=== PATIENT | female | born 1935 | race Hispanic/Latino ===

== ENCOUNTER → 2018-06-22 | Outpatient (CLI) | payer OTHER ==
[~2018-06-22] MED LIST: ACET1TAB12 PO; ALEN70SO3 PO; AMLO5TAB9 PO; ASPI-12 PO; ATOR40TA69 PO; CA C1TAB98 PO; FERR159T2 PO; LISI-613 PO; METO25TA6 PO
== END | disposition home or self-care (01) ==
LOC: RAH 14:37
PROVIDERS: ATTEND Family Medicine
DX: Z12.31 Encounter for screening mammogram for malignant neoplasm of breast (principal)
CPT/HCPCS: 77067

== ENCOUNTER → 2018-07-06 | Outpatient (CLI) | payer OTHER | END | disposition home or self-care (01) | LOC: RAH 12:35 | PROVIDERS: ATTEND Otolaryngology Plastic Surgery within the Head & Neck | DX: R22.1 Localized swelling, mass and lump, neck (principal) | CPT/HCPCS: 76536 ==

== ENCOUNTER 2022-06-24 13:41 | Inpatient (IN) | payer OTHER ==
[~2022-06-24] VITALS: Ht 149.9 cm; Wt 56.7 kg
[~2022-06-24 13:41] MED LIST changes: -ALEN70SO3 PO; +ALEN70SO4 PO; +AMLO-257 PO; -AMLO5TAB9 PO; -LISI-613 PO; +LISI20TA24 PO
[2022-06-24] MEDS ORDERED: IPRATROPIUM/ALBUTEROL SULFATE 3 ML SOLUTION IH ONE (15:00)
[2022-06-24 15:24] LABS: BASOPHILS % (AUTO) 0.4 % (0.0-5.0); EOSINOPHILS % (AUTO) 1.7 % (0.0-8.0); HEMATOCRIT 38.2 % (36-48); LYMPHOCYTES % (AUTO) 25.6 % (21.0-51.0); MEAN CORPUSCULAR HEMOGLOBIN 31.2 pg (27.0-33.0); MEAN CORPUSCULAR VOLUME 94.6 fL (79-99); MONOCYTES % (AUTO) 15.5 % (3.0-13.0); NEUTROPHILS % (AUTO) 56.4 % (40.0-77.0); PLATELET COUNT (AUTO) 205 K/uL (130-400); RED BLOOD CELL COUNT(AUTO) 4.04 MIL/uL (4.00-5.50); RED CELL DISTRIBUTION WIDTH 13.8 % (11.0-15.5); WHITE BLOOD COUNT (AUTO) 5.4 K/uL (4.8-10.8)
[2022-06-24 15:25] LABS: APPEARANCE,URINE CLEAR (CLEAR); BILIRUBIN,URINE NEGATIVE (NEGATIVE); COLOR,URINE LIGHT-YELLOW (YELLOW); GLUCOSE, URINE (UA) NEGATIVE (NEGATIVE); KETONES,URINE NEGATIVE (NEGATIVE); LEUKOCYTE ESTERASE ,URINE NEGATIVE Leu/uL (NEGATIVE); NITRATE,URINE NEGATIVE (NEGATIVE); OCCULT BLOOD,URINE NEGATIVE (NEGATIVE); PROTEIN,URINE NEGATIVE (NEGATIVE); UROBILINOGEN,URINE 0.2 mg/dL (0.2-1.0)
[2022-06-24 15:28] LABS: BACTERIA,URINE RARE /HPF (None Seen); MUCUS,URINE RARE LPF (None Seen); RBC,URINE 0-1 /HPF (0-1); SQUAMOUS EPITHELIAL CELL,UR RARE /HPF (0-2); YEAST,URINE BUDDING RARE /HPF (None Seen)
[2022-06-24 15:33] LABS: CREATININE 0.9 mg/dL (0.5-1.5); POTASSIUM 3.9 mmol/L (3.5-5.1)
[2022-06-24 15:40] LABS: ALBUMIN 3.2 g/dL (3.5-5.0); TOTAL PROTEIN, SERUM 7.2 g/dL (6.0-8.3)
[2022-06-24 16:14] LABS: ABG BASE EXCESS 3.3 mmol/L (-2.0-3.0); ABG HCO3 26.8 mmol/L (21.0-28.0); ABG OXYGEN SATURATION 95.9 % (95.0-99.0); ABG PCO2 37 mmHg (32-45)
[2022-06-24] MEDS ORDERED: MECO10005 PO (17:05)
[2022-06-24] MEDS ORDERED: IBAN150T21 PO (17:05)
[2022-06-24] MEDS ORDERED: KAYEXALATE 15GM/60ML PO PRN (17:30)
[2022-06-24] MEDS ORDERED: ACETAMINOPHEN 325 MG TAB PO PRN (17:30)
[2022-06-24] MEDS ORDERED: ONDANSETRON 4MG INJ IVP PRN (17:30)
[2022-06-24] MEDS ORDERED: MORPHINE 2 MG SYG IVP PRN (17:30)
[2022-06-24] MEDS ORDERED: MORPHINE 4 MG SYG IVP PRN (17:30)
[2022-06-24] MEDS ORDERED: HYDROCODONE/ACETAMINOPHEN 5/325 MG TAB PO PRN (17:30)
[2022-06-24] MEDS ORDERED: TEMAZEPAM 15 MG CAPSULE PO PRN (17:30)
[2022-06-24] MEDS ORDERED: HYDRALAZINE 20MG/ML VIAL IV PRN (17:30)
[2022-06-24] MEDS ORDERED: LABETALOL 20MG SYG IV PRN (17:30)
[2022-06-24] MEDS ORDERED: VIT1CAPS47 PO (18:49)
[2022-06-24] MEDS: ALBUTEROL 0.083% 2.5 MG/3 ML INH IH PRN (20:36)
[2022-06-24] MEDS: LISINOPRIL 20 MG TABLET PO SCH (22:09)
[2022-06-24] MEDS: METOPROLOL TARTRATE 25 MG TAB PO SCH (22:09)
[2022-06-24] MEDS: ATORVASTATIN 40 MG TABLET PO SCH (22:09)
[2022-06-24] MEDS: FUROSEMIDE 40MG VIAL IV SCH (22:44)
[2022-06-25] VITALS (15 sets, daily range): BP systolic 102–150; BP diastolic 52–66
[2022-06-25] MEDS ORDERED: FERR-72 PO (00:49)
[2022-06-25] MEDS ORDERED: CHOL500051 PO (00:49)
[2022-06-25 05:31] LABS: BASOPHILS % (AUTO) 0.4 % (0.0-5.0); EOSINOPHILS % (AUTO) 2.4 % (0.0-8.0); HEMATOCRIT 37.4 % (36-48); LYMPHOCYTES % (AUTO) 23.4 % (21.0-51.0); MEAN CORPUSCULAR HEMOGLOBIN 30.8 pg (27.0-33.0); MEAN CORPUSCULAR HGB CONC 33.2 g/dL (32.0-36.0); MONOCYTES % (AUTO) 18.2 % (3.0-13.0); NEUTROPHILS % (AUTO) 55.2 % (40.0-77.0); PLATELET COUNT (AUTO) 211 K/uL (130-400); RED BLOOD CELL COUNT(AUTO) 4.02 MIL/uL (4.00-5.50); RED CELL DISTRIBUTION WIDTH 13.9 % (11.0-15.5); WHITE BLOOD COUNT (AUTO) 5.4 K/uL (4.8-10.8)
[2022-06-25 05:43] LABS: INR 1.1 (0.85-1.15); PROTHROMBIN TIME 11.9 SEC (9.6-11.6)
[2022-06-25 05:44] LABS: PARTIAL THROMBOPLASTIN TIME 30.2 SEC (26.3-35.5)
[2022-06-25 05:52] LABS: CREATININE 0.8 mg/dL (0.5-1.5); MAGNESIUM 1.8 mg/dL (1.80-2.40); PHOSPHORUS 4.2 mg/dL (2.5-4.9); POTASSIUM 3.9 mmol/L (3.5-5.1); THYROID STIMULATING HORMONE 2.19 uIU/mL (0.36-3.74); TOTAL PROTEIN, SERUM 6.1 g/dL (6.0-8.3)
[2022-06-25 05:57] LABS: B-TYPE NATRIURETIC PEPTIDE 194 pg/mL (0-100)
[2022-06-25] MEDS: FERROUS SULFATE 325 MG TABLET.DR PO SCH (09:22)
[2022-06-25] MEDS: METOPROLOL TARTRATE 25 MG TAB PO SCH ×2 (09:22→21:48)
[2022-06-25] MEDS: LISINOPRIL 20 MG TABLET PO SCH ×2 (09:22→21:48)
[2022-06-25] MEDS: FUROSEMIDE 40MG VIAL IV SCH ×2 (11:39→21:49)
[2022-06-25 13:00] LABS: BODY FLUID RBC 740 /cu. mm.; BODY FLUID WBC 1094 /cu. mm.
[2022-06-25 13:32] LABS: BF LYMPHOCYTE 86 %; BF MESOTHELIAL 8 %
[2022-06-25 13:33] LABS: APPEARANCE BODY FLUID CLEAR (CLEAR); SPECIMENTYPE,BODY FLUID PLEURAL
[2022-06-25 13:34] LABS: COLOR,BODY FLUID YELLOW (LT YELLOW); TOTAL VOLUME,BODY FLUID 1500 mL
[2022-06-25 14:18] LABS: ABG BASE EXCESS 5.4 mmol/L (-2.0-3.0); ABG HCO3 27.2 mmol/L (21.0-28.0); ABG PCO2 32 mmHg (32-45)
[2022-06-25] MEDS: ALBUTEROL 0.083% 2.5 MG/3 ML INH IH PRN (14:35)
[2022-06-25] MEDS ORDERED: ENOXAPARIN SODIUM 30 MG/0.3 ML SQ SCH (17:00)
[2022-06-25] MEDS ORDERED: ALBUTEROL 0.083% 2.5 MG/3 ML INH IH PRN (18:00)
[2022-06-25] MEDS ORDERED: HEPARIN 5,000 UNIT VIAL ONE ×2 (18:34→19:37)
[2022-06-25] MEDS ORDERED: IOHEXOL 350 MG/ML 100ML INFUS..BTL IV ONE (19:31)
[2022-06-25] MEDS: ATORVASTATIN 40 MG TABLET PO SCH (21:48)
[2022-06-26] VITALS (12 sets, daily range): BP systolic 101–136; BP diastolic 51–87
[2022-06-26] MEDS: LEVOFLOXACIN 500 MG/D5W 100 ML 100 ML IV SCH (03:09)
[2022-06-26] MEDS: METRONIDAZOLE 500MG/100ML BAG 100 ML IVPB SCH ×3 (05:32→21:19)
[2022-06-26] MEDS ORDERED: ASPIRIN PO SCH (09:00)
[2022-06-26] MEDS ORDERED: CALCIUM CARBONATE PO SCH (09:00)
[2022-06-26] MEDS ORDERED: MAG PO SCH (09:00)
[2022-06-26] MEDS ORDERED: NON-FORMULARY MEDICATION 1 EACH (Ferrous Sulfate 325 MG) PO SCH (09:00)
[2022-06-26] MEDS ORDERED: ASPIRIN 81MG CHEW TAB PO SCH (09:00)
[2022-06-26] MEDS ORDERED: [UNRECOGNIZED DRUG - OTHER] PO SCH (09:00)
[2022-06-26] MEDS: LISINOPRIL 20 MG TABLET PO SCH ×2 (09:23→21:19)
[2022-06-26] MEDS: METOPROLOL TARTRATE 25 MG TAB PO SCH ×2 (09:23→21:19)
[2022-06-26] MEDS: FERROUS SULFATE 325 MG TABLET.DR PO SCH (09:23)
[2022-06-26] MEDS: AMLODIPINE 5 MG TAB PO SCH (09:23)
[2022-06-26] MEDS: ATORVASTATIN 40 MG TABLET PO SCH (21:19)
[2022-06-27] VITALS (7 sets, daily range): BP systolic 100–125; BP diastolic 47–53
[2022-06-27] MEDS: LEVOFLOXACIN 500 MG/D5W 100 ML 100 ML IV SCH (00:37)
[2022-06-27] MEDS: METRONIDAZOLE 500MG/100ML BAG 100 ML IVPB SCH ×3 (05:16→20:43)
[2022-06-27] MEDS: LISINOPRIL 20 MG TABLET PO SCH ×2 (09:37→20:43)
[2022-06-27] MEDS: METOPROLOL TARTRATE 25 MG TAB PO SCH ×2 (09:37→20:43)
[2022-06-27] MEDS: FERROUS SULFATE 325 MG TABLET.DR PO SCH (09:37)
[2022-06-27] MEDS: AMLODIPINE 5 MG TAB PO SCH (09:37)
[2022-06-27] MEDS: LACTULOSE 20 GM/30 ML UDCUP PO PRN (14:56)
[2022-06-27] MEDS: ATORVASTATIN 40 MG TABLET PO SCH (20:43)
[2022-06-28] VITALS: BP 113/47
[2022-06-28] MEDS: LEVOFLOXACIN 500 MG/D5W 100 ML 100 ML IV SCH (00:22)
[2022-06-28 04:00] VITALS: BP 126/56
[2022-06-28] MEDS: METRONIDAZOLE 500MG/100ML BAG 100 ML IVPB SCH (04:59)
[2022-06-28 05:41] LABS: HEMATOCRIT 36.5 % (36-48); MEAN CORPUSCULAR HEMOGLOBIN 30.8 pg (27.0-33.0); MEAN CORPUSCULAR HGB CONC 32.9 g/dL (32.0-36.0); MEAN CORPUSCULAR VOLUME 93.8 fL (79-99); RED BLOOD CELL COUNT(AUTO) 3.89 MIL/uL (4.00-5.50); RED CELL DISTRIBUTION WIDTH 13.8 % (11.0-15.5); WHITE BLOOD COUNT (AUTO) 9.2 K/uL (4.8-10.8)
[2022-06-28 05:44] LABS: POTASSIUM 3.6 mmol/L (3.5-5.1)
[2022-06-28 08:00] VITALS: BP 113/54
[2022-06-28] MEDS: AMLODIPINE 5 MG TAB PO SCH (08:28)
[2022-06-28] MEDS: LISINOPRIL 20 MG TABLET PO SCH ×2 (08:28→20:25)
[2022-06-28] MEDS: FERROUS SULFATE 325 MG TABLET.DR PO SCH (08:29)
[2022-06-28] MEDS: ENOXAPARIN SODIUM 30 MG/0.3 ML SQ SCH (08:29)
[2022-06-28] MEDS: ASPIRIN 81 MG EC TAB PO SCH (08:29)
[2022-06-28] MEDS: METOPROLOL TARTRATE 25 MG TAB PO SCH ×2 (08:29→20:25)
[2022-06-28 12:00] VITALS: BP 123/52
[2022-06-28 16:00] VITALS: BP 142/62
[2022-06-28 20:00] VITALS: BP 161/53
[2022-06-28] MEDS: ATORVASTATIN 40 MG TABLET PO SCH (20:25)
[2022-06-29] VITALS: BP 129/54
[2022-06-29 04:00] VITALS: BP 131/67
[2022-06-29 07:40] VITALS: BP 121/52
[2022-06-29] MEDS: LISINOPRIL 20 MG TABLET PO SCH (09:52)
[2022-06-29] MEDS: METOPROLOL TARTRATE 25 MG TAB PO SCH (09:52)
[2022-06-29] MEDS: AMLODIPINE 5 MG TAB PO SCH (09:52)
[2022-06-29] MEDS: ASPIRIN 81 MG EC TAB PO SCH (09:52)
[2022-06-29] MEDS: FERROUS SULFATE 325 MG TABLET.DR PO SCH (09:52)
[2022-06-29] MEDS: ENOXAPARIN SODIUM 30 MG/0.3 ML SQ SCH (09:53)
[2022-06-29] MEDS ORDERED: IPRATROPIUM 0.5 MG/2.5 ML INH IH PRN (11:30)
[2022-06-29 12:05] VITALS: BP 105/57
[2022-06-29] MEDS: LACTULOSE 20 GM/30 ML UDCUP PO PRN (13:49)
[2022-06-29] MEDS ORDERED: LEVOFLOXACIN 500 MG/D5W 100 ML 100 ML IV SCH (23:30)
== END 2022-06-29 16:45 | DRG 823 ==
LOC: EDH 13:41 → EDHIP 17:06 → 4AH 23:43
PROVIDERS: ADMIT Internal Medicine Critical Care Medicine; ATTEND Internal Medicine Critical Care Medicine
PROC: 0W9B3ZZ Drainage of Left Pleural Cavity, Percutaneous Approach (ICD-10-PCS; principal; 2022-06-24)
PROC: 07B23ZX Excision of Left Neck Lymphatic, Percutaneous Approach, Diagnostic (ICD-10-PCS; 2022-06-26)
DX: C85.90 Non-Hodgkin lymphoma, unspecified, unspecified site (principal); J96.01 Acute respiratory failure with hypoxia; J98.11 Atelectasis; J91.0 Malignant pleural effusion; I11.0 Hypertensive heart disease with heart failure; I48.91 Unspecified atrial fibrillation; I50.9 Heart failure, unspecified; E11.65 Type 2 diabetes mellitus with hyperglycemia; R59.1 Generalized enlarged lymph nodes; E78.00 Pure hypercholesterolemia, unspecified; R74.01 Elevation of levels of liver transaminase levels; D64.9 Anemia, unspecified; M81.0 Age-related osteoporosis without current pathological fracture; E11.9 Type 2 diabetes mellitus without complications; E66.9 Obesity, unspecified; Z20.822 Contact with and (suspected) exposure to COVID-19; I25.10 Atherosclerotic heart disease of native coronary artery without angina pectoris; E78.1 Pure hyperglyceridemia; Z79.82 Long term (current) use of aspirin; Z86.73 Personal history of transient ischemic attack (TIA), and cerebral infarction without residual deficits; Z88.0 Allergy status to penicillin
CPT/HCPCS: 32555; 36415; 36600; 38505; 71045; 71270; 74178; 76942; 80048; 80053; 81001; 82803; 82945; 83615; 83735; 83880; 83986; 84100; 84155; 84157; 84443; 84484; 85025; 85027; 85378; 85610; 85730; 87071; 87205; 87635; 87804; 89051; 93005; 93306; 93880; 94640; 94664; 97039; 99291; C1729; G0378; J1644; J1650; J1940; J1956; J2405; J3490; Q9967

== ENCOUNTER → 2024-01-18 | Outpatient (CLI) | payer OTHER ==
[~2024-01-18] MED LIST changes: -ACET1TAB12 PO; -ALEN70SO4 PO; -CA C1TAB98 PO; +CHOL500051 PO; +FERR-72 PO; -FERR159T2 PO; +IBAN150T21 PO; +MECO10005 PO; +VIT1CAPS47 PO
== END | disposition home or self-care (01) ==
LOC: RAH 13:44
PROVIDERS: ATTEND Family Medicine
DX: M81.0 Age-related osteoporosis without current pathological fracture (principal)
CPT/HCPCS: 77080